=== PATIENT | female | born 1960 | race Caucasian/White ===

== ENCOUNTER → 2017-03-25 | Outpatient (CLI) | payer OTHER ==
--- NOTE | 2017-03-25 16:34 | MY ---
EXAMINATION: Bilateral digital mammography utilizing CAD. HISTORY: Screening exam. Comparison is made to previous studies dated 01/27/2016, 05/04/2014, 04/13/20 14. FINDINGS: Bilateral heterogeneously dense breast tissue No suspicious calcifications, masses or ar chitectural distortions. No pathologic appearing lymph nodes, no abnormal skin thickening or nippl e inversion. CAD highlighted regions appear normal at this time. IMPRESSION: BI-RADS category I - negative mammogram. Continued screening according to ACR-ACS gu idelines suggested. THE FALSE-NEGATIVE RATE OF MAMMOGRAM IS APPROXIMATELY 10%. MANAGEMENT OF A PALPABLE ABNORMALITY MUST BE BASED UPON CLINICAL GROUNDS. SENSITIVITY FOR DETECTION OF ABNORMALITIES IN DENSE BREASTS IS LOW. NOTE: A letter will be sent to the patient regarding findings. [facility] [place] -- ANTONIO Montoya [phone] - FAX [phone]
== END ==
LOC: MW.MAM 09:56
PROVIDERS: ATTEND Obstetrics & Gynecology
DX: Z12.31 Encounter for screening mammogram for malignant neoplasm of breast (principal)
CPT/HCPCS: G0202; G0202-26

== ENCOUNTER 2019-11-26 10:19 | Day surgery (SDC) | payer OTHER ==
[~2019-11-26 10:19] MED LIST: Lactated Ringers 1,000 ML IV SCH; Sodium Chloride 0.9% 10 ML SDV IV PRN; Sodium Chloride 0.9% 10 ML Syringe FLUSH PRN; Sodium Chloride 0.9% 2.5 ML Syringe FLUSH PRN
--- NOTE | 2019-11-26 11:17 | PCM.PREANE ---
Preanesthetic Assessment - Anesthesia/Transfusion/Family Hx Anesthesia History: Prior Anesthesia Without Reaction Other Type of Anesthesia Reaction Comment: DENIES ANY PROBLEMS WITH ANESTHESIA Family History of Anesthesia Reaction: No Transfusion History: No Prior Transfusion(s) Intubation History: Unknown - Review of Systems General: No Symptoms Pulmonary: No Symptoms Cardiovascular: No Symptoms Gastrointestinal: No Symptoms Neurological: No Symptoms Other: Reports: None - Physical Assessment Vital Signs: Last Vital Signs Temp 36.5 C 11/26/19 11:00 Pulse 67 11/26/19 11:00 Resp 18 11/26/19 11:00 BP 119/77 11/26/19 11:00 Pulse Ox 98 11/26/19 11:00 Height: 5 ft 10 in Weight: 78.925 kg ASA Class: 2 Mental Status: Alert & Oriented x3 Airway Class: Mallampati = 1 Dentition: Reports: Normal Dentition Thyro-Mental Finger Breadths: 3 Mouth Opening Finger Breadths: 3 ROM/Head Extension: Full Lungs: Clear to Auscultation, Normal Respiratory Effort Cardiovascular: Regular Rate, Regular Rhythm - Allergies Allergies/Adverse Reactions: Allergies Allergy/AdvReac Type Severity Reaction Status Date / Time No Known Allergies Allergy Verified 11/20/19 10:42 - Blood Blood Available: No - Anesthesia Plan Pre-Op Medication Ordered: None - Acknowledgements Anesthesia Type Planned: MAC Pt an Appropriate Candidate for the Planned Anesthesia: Yes Alternatives and Risks of Anesthesia Discussed w Pt/Guardian: Yes Pt/Guardian Understands and Agrees with Anesthesia Plan: Yes PreAnesthesia Questionnaire HEENT History: Reports: Other (See Below) Other HEENT History: wears glasses Cardiovascular History: Reports: Hypertension Respiratory History: Reports: None Gastrointestinal History: Reports: GERD, Other (See Below) (h/o gastric ulcer) Genitourinary History: Reports: Renal Calculus VASCULAR TECH History: Reports: Musculoskeletal History: Reports: None Neurological History: Reports: Migraines, Other (See Below) (h/o benign paroxysmal positional vertigo, now ok) Psychiatric History: Reports: Anxiety, Depression Endocrine/Metabolic History: Reports: None Hematologic History: Reports: None, Other (See Below) (h/o anemia) Immunologic History: Reports: None Oncologic (Cancer) History: Reports: None Dermatologic History: Reports: None - Past Surgical History Head Surgeries/Procedures: Reports: None HEENT Surgical History: Reports: Adenoidectomy, Tonsillectomy Cardiovascular Surgical History: Reports: None Respiratory Surgical History: Reports: None GI Surgical History: Reports: Colonoscopy (18 years ago) Female Surgical History: Reports: Breast Biopsy, Endometrial Ablation Endocrine Surgical History: Reports: None Neurological Surgical History: Reports: None Musculoskeletal Surgical History: Reports: None Oncologic Surgical History: Reports: Biopsy of Breast Dermatological Surgical History: Reports: None - SUBSTANCE USE Smoking Status *Q: Never Smoker Recreational Drug Use History: No - HOME MEDS Home Medications: Home Meds Desvenlafaxine Succinate [Pristiq] 50 mg PO DAILY 11/20/19 [History] Lisinopril/Hydrochlorothiazide [Lisinopril-Hctz 20-12.5 mg Tab] 1 tab PO DAILY 11/20/19 [History] Multivitamin [Multivitamins] 1 tab PO DAILY 11/20/19 [History] Omeprazole Magnesium [Prilosec Otc] 1 tab PO DAILY 11/20/19 [History] buPROPion HCl [Wellbutrin Xl] 150 mg PO DAILY 11/20/19 [History] - CURRENT (IN HOUSE) MEDS Current Meds: Current Medications Lactated Ringer's (Ringers, Lactated) 1,000 mls @ 125 mls/hr IV ASDIRECTED VELASQUEZ Sodium Chloride (Saline Flush) 10 ml FLUSH ASDIRECTED PRN PRN Reason: Keep Vein Open Sodium Chloride (Saline Flush) 2.5 ml FLUSH ASDIRECTED PRN PRN Reason: Keep Vein Open Sodium Chloride (Saline Flush) 10 ml FLUSH ASDIRECTED PRN PRN Reason: Keep Vein Open Sodium Chloride (Saline Flush) 2.5 ml FLUSH ASDIRECTED PRN PRN Reason: Keep Vein Open Sodium Chloride (Normal Saline) 10 ml IV ASDIRECTED PRN PRN Reason: IV Use
[2019-11-26] MEDS ORDERED: Propofol 200 MG/20 ML SDV ONE (12:25)
[2019-11-26] MEDS ORDERED: fentaNYL 100 MCG/2 ML SDV ONE (12:26)
[2019-11-26] MEDS ORDERED: Midazolam 1 MG/ML 2 ML SDV ONE (12:26)
--- NOTE | 2019-11-26 13:14 | PCM.POSTAN ---
POST ANESTHESIA ASSESSMENT - MENTAL STATUS Mental Status: Alert, Oriented - VITAL SIGNS Vital Signs: Last Vital Signs Temp 36.5 C 11/26/19 12:56 Pulse 60 11/26/19 13:06 Resp 15 11/26/19 13:06 BP 115/67 11/26/19 13:06 Pulse Ox 97 11/26/19 13:06 - RESPIRATORY Respiratory Status: Respiratory Rate WNL, Airway Patent, O2 Saturation Stable - CARDIOVASCULAR CV Status: Pulse Rate WNL, Blood Pressure Stable - GASTROINTESTINAL GI Status: No Symptoms - PAIN Pain Score: 0 - POST OP HYDRATION Hydration Status: Adequate & Stable - OBSERVATIONS Free Text/Narrative:: No anesthesia problems
[2019-11-26 13:17] VITALS: BP 106/60; PULSE 55
--- NOTE | 2019-11-26 14:00 | PCM.OPNOTE ---
- General Post-Op/Procedure Note Date of Surgery/Procedure: 11/26/19 Operative Procedure(s): Screening colonoscopy Findings: Grade IV hemorrhoids, sigmoid colon polyp Pre Op Diagnosis: Screening colonoscopy Post-Op Diagnosis: Grade IV hemorrhoids, sigmoid colon polyp Anesthesia Technique: [facility] Primary Surgeon: An Marquez Condition: Good Free Text/Narrative:: Intake & Output 11/25/19 11/26/19 11/26/19 22:59 06:59 14:59 Intake Total 600 Balance 600
--- NOTE | 2019-11-26 14:21 | PCM48HPAN ---
Post Anesthesia Note - EVALUATION WITHIN 48HRS OF ANESTHETIC Vital Signs in Normal Range: Yes Patient Participated in Evaluation: Yes Respiratory Function Stable: Yes Airway Patent: Yes Cardiovascular Function Stable: Yes Hydration Status Stable: Yes Pain Control Satisfactory: Yes Nausea and Vomiting Control Satisfactory: Yes Mental Status Recovered: Yes Vital Signs: Last Vital Signs Temp 36.8 C 11/26/19 13:13 Pulse 55 L 11/26/19 13:13 Resp 16 11/26/19 13:13 BP 106/60 11/26/19 13:13 Pulse Ox 99 11/26/19 13:13 - COMMENTS/OBSERVATIONS Free Text/Narrative:: No anesthesia problems
--- NOTE | 2019-11-26 15:32 | OR ---
SURGEON: AN MARQUEZ MD DATE OF PROCEDURE: 11/26/2019 PREOPERATIVE DIAGNOSIS: Screening colonoscopy. POSTOPERATIVE DIAGNOSES: 1. Sigmoid colon polyp. 2. Grade 4 hemorrhoids. PROCEDURE PERFORMED: Screening colonoscopy with polypectomy. PRIMARY SURGEON: An Marquez MD. ANESTHESIA: MAC. INSTRUMENT USED: Olympus colonoscope. EXTENT OF EXAM: To the cecum. PREPARATION: Good. LIMITATIONS: None. INDICATIONS FOR EXAMINATION: The patient is a 58-year-old female who presents for screening colonoscopy. The patient and I discussed the procedure; expected perioperative course; and risks including bleeding, infection, or damage to surrounding structures including perforation. The patient verbalized understanding and wishes to proceed. PROCEDURE IN DETAIL: The patient was brought into the endoscopy suite and placed in the left lateral decubitus position. A time-out was completed verifying the patient's name, age, date of , allergies, and procedure to be performed. Monitored anesthesia care was induced and continuous oxygen was provided via nasal cannula throughout the whole procedure. After adequate sedation was achieved, a digital rectal exam was performed. This exam revealed grade 4 hemorrhoids. A well-lubricated colonoscope was inserted in the rectum and advanced under direct visualization to the level of the cecum. The cecum was identified by both visual and anatomic landmarks. A photograph was taken of the cecal cap as well as with the scope retroflexed within the cecum. The scope was then fully withdrawn while examining the color, texture, anatomy, and integrity of the mucosa from the cecum to the anal canal. The patient was found to have a sigmoid colon polyp which was removed in piecemeal fashion using cold biopsy forceps. The scope was then brought into the rectum and retroflexed to allow visualization of the anal canal opening. Again, the patient was noted to have enlarged hemorrhoidal tissue. A photograph of this was taken. The scope was then straightened out and fully withdrawn. The cecum to anus time was 9 minutes. The patient tolerated the procedure well and was transferred to the PACU in stable condition. ENDOSCOPIC DIAGNOSES: 1. Sigmoid colon polyp. 2. Grade 4 hemorrhoids. RECOMMENDATIONS: Follow up in clinic in 2 weeks. KANU LAGUNA /[id number]
== END 2019-11-26 13:50 | disposition home or self-care (01) ==
LOC: MW.SDS 10:19
PROVIDERS: ATTEND Surgery
DX: Z12.11 Encounter for screening for malignant neoplasm of colon (principal); K63.5 Polyp of colon; K64.3 Fourth degree hemorrhoids; I10 Essential (primary) hypertension; K21.9 Gastro-esophageal reflux disease without esophagitis; G43.909 Migraine, unspecified, not intractable, without status migrainosus; N63.10 Unspecified lump in the right breast, unspecified quadrant; F41.9 Anxiety disorder, unspecified; F32.9 Major depressive disorder, single episode, unspecified; Z79.899 Other long term (current) drug therapy; Z80.0 Family history of malignant neoplasm of digestive organs
CPT/HCPCS: 45380; J2250; J2704; J3010; J7120; 00812; 88305